=== PATIENT | female | born 1970 | race Caucasian/White ===

== ENCOUNTER 2019-08-02 09:39 | Emergency (ER) | payer MEDICAID ==
[~2019-08-02] VITALS: Ht 170.2 cm; Wt 71.0 kg
[2019-08-02 10:10] VITALS: BP 106/47
[2019-08-02] MEDS ORDERED: IBUPROFEN 600MG TABLET PO STA (11:24)
== END 2019-08-02 13:35 | disposition home or self-care (01) ==
LOC: ER 09:39
DX: S30.0XXA Contusion of lower back and pelvis, initial encounter (principal); Y93.E1 Activity, personal bathing and showering; W18.2XXA Fall in (into) shower or empty bathtub, initial encounter; R03.0 Elevated blood-pressure reading, without diagnosis of hypertension; Y92.091 Bathroom in other non-institutional residence as the place of occurrence of the external cause
CPT/HCPCS: 72100; 99283